=== PATIENT | male | born 1950 | race Caucasian/White ===

== ENCOUNTER 2020-02-29 16:17 | Emergency (ER) | payer MEDICARE, OTHER ==
[~2020-02-29] VITALS: Ht 165.1 cm; Wt 66.5 kg
[~2020-02-29 16:17] MED LIST: AMLO10TA8 PO
[2020-02-29 16:44] VITALS: BP 136/81
--- NOTE | 2020-02-29 17:19 | NUR ---
SPORTS INFORMATION DIRECTOR: PT TO ROOM FROM [facility]
--- NOTE | 2020-02-29 17:28 | NUR ---
HEATHER RN: PT REPORTS HIS HIS DOG RAN INTO HIS RIGHT KNEE YESTERDAY AND HE IS NOT ABLE TO BEAR WEIGHT ON IT. VS STABLE. CALL LIGHT IN PLACE. REPORT GIVEN TO ALYSE APONTE
--- NOTE | 2020-02-29 17:29 | NUR ---
PT TO ROOM BY WHEELCHAIR WITH ALYSE WALTERS. NAD NOTED. PT RESTING CALMLY IN RWELLS, CALL LIGHT WITHIN REACH. ASSUMING CARE OF PT
--- NOTE | 2020-02-29 17:52 | NUR ---
ERP AT BEDSIDE FOR INITIAL ASSESSMENT
--- NOTE | 2020-02-29 18:27 | NUR ---
DC EDUCATION PROVIDED, PT DEMONSTRATES UNDERSTANDING. JUAN WRAP APPLIED WITH GOOD DISTAL CAP REFILL. PT TRANSFERRED SELF TO WHEELCHAIR, WHEELED TO DC WITH RN. SON TO TRANSPORT PT HOME.
== END 2020-02-29 18:30 | disposition home or self-care (01) ==
LOC: ED 17:36
DX: S80.02XA Contusion of left knee, initial encounter (principal); F17.200 Nicotine dependence, unspecified, uncomplicated; X58.XXXA Exposure to other specified factors, initial encounter; Y93.89 Activity, other specified; Y92.830 Public park as the place of occurrence of the external cause; Y99.8 Other external cause status
CPT/HCPCS: 99283

== ENCOUNTER → 2020-10-18 | Outpatient (CLI) | payer MEDICARE ==
[~2020-10-18] MED LIST changes: +AMLO-211 PO; -AMLO10TA8 PO
[2020-10-18 15:32] LABS: MEAN CORPUSCULAR HEMOGLOBIN 37.6 pg (27.5-34.5); MEAN CORPUSCULAR HGB CONC 33.8 g/dL (33.2-36.2); MEAN PLATELET VOLUME 7.8 fL (7.4-10.4); PLATELET COUNT 99 x10^3/uL (130-400); RED BLOOD COUNT 3.86 x10^6/uL (4.38-5.82); RED CELL DISTRIBUTION WIDTH 13.1 % (9.4-14.8)
[2020-10-18 15:42] LABS: ALANINE AMINOTRANSFERASE 20 U/L (12-78); ALBUMIN 4.3 g/dL (3.4-5.0); ANION GAP 5 mmol/L (5-15); CALCIUM 9.4 mg/dL (8.5-10.1); CHLORIDE 105 mmol/L (98-107); CREATININE 0.85 mg/dL (0.7-1.3)
[2020-10-18 15:45] LABS: ALKALINE PHOSPHATASE 64 U/L (45-117); BILIRUBIN,TOTAL 0.7 mg/dL (0.2-1.0); TOTAL PROTEIN 6.9 g/dL (6.4-8.2)
[2020-10-18 16:20] LABS: MD YES
[2020-10-18 16:21] LABS: HEMOGRAM NOTE RECHECKED
[2020-10-18 16:25] LABS: LYMPH#(MANUAL) 23.24 x10^3/uL (1-3.4); LYMPHS% (MANUAL) 83 % (22-44); MONOS#(MANUAL) 0.28 x10^3/uL (0.3-2.7); MONOS% (MANUAL) 1 % (2-9); REACTIVE LYMPHS # (MANUAL) 0.28 x10^3/uL (0-0); REACTIVE LYMPHS % (MANUAL) 1 % (0-0); SEGS% (MANUAL) 15 % (42-75)
[2020-10-18 16:34] LABS: ANISOCYTOSIS 1+
[2020-10-18 16:35] LABS: <PLATELET ESTIMATE> DECREASED; <PLT MORPHOLOGY> NORMAL PLT MORPH; OVALOCYTES 1+
== END | disposition home or self-care (01) ==
LOC: STAR 14:11
PROVIDERS: ATTEND Surgery
DX: Z01.818 Encounter for other preprocedural examination (principal); M48.54XA Collapsed vertebra, not elsewhere classified, thoracic region, initial encounter for fracture; J43.9 Emphysema, unspecified; Z20.822 Contact with and (suspected) exposure to COVID-19
CPT/HCPCS: 36415; 71046; 80053; 83690; 85025; 85730; 93005; U0003

== ENCOUNTER 2020-10-24 10:08 | Day surgery (SDC) | payer MEDICARE ==
[~2020-10-24] VITALS: Ht 166.4 cm; Wt 63.8 kg
[2020-10-24 10:44] VITALS: BP 136/84
[2020-10-24] MEDS ORDERED: INDOCYANINE GREEN 25 MG VIAL ONE (10:52)
[2020-10-24] MEDS ORDERED: LACTATED RINGERS 1,000 ML IV SCH (11:00)
[2020-10-24] MEDS ORDERED: INDOCYANINE GREEN 25 MG VIAL IVPush ONE (11:00)
[2020-10-24] MEDS ORDERED: CHLORHEXIDINE 15 ML UDC PO ONE (11:00)
[2020-10-24] MEDS ORDERED: BUPIVACAINE/PF 0.5% ONE (12:41)
[2020-10-24] MEDS ORDERED: FENTANYL PF 250 MCG/5ML ONE (14:10)
[2020-10-24] MEDS ORDERED: ROCURONIUM 10MG/ML,5ML ONE (14:55)
[2020-10-24] MEDS ORDERED: GLYCOPYRROLATE 0.2MG/1ML, 5ML ONE (14:55)
[2020-10-24] MEDS ORDERED: DEXAMETHASONE 4 MG/ML, 1ML ONE (14:55)
[2020-10-24] MEDS ORDERED: ONDANSETRON 2MG/ML, 2ML ONE ×2 (14:55→15:33)
[2020-10-24] MEDS ORDERED: PROPOFOL 10 MG/ML, 20ML ONE (14:55)
[2020-10-24] MEDS ORDERED: NEOSTIGMINE 1 MG/ML, 10ML ONE (14:55)
[2020-10-24] MEDS ORDERED: CEFAZOLIN 1,000 MG ONE (14:55)
[2020-10-24] MEDS ORDERED: SUCCINYLCHOLINE 20 MG/ML, 10ML ONE (14:55)
[2020-10-24] MEDS ORDERED: OXYcodone 5 MG/5 ML ORAL.SOL UDC PO PRN (15:00)
[2020-10-24] MEDS ORDERED: HYDROmorphone 1 MG/ML, 1ML INJ IVPush PRN (15:00)
[2020-10-24] MEDS ORDERED: PROMETHAZINE 25 MG SUPP PR PRN (15:00)
[2020-10-24] MEDS ORDERED: MEPERIDINE/PF 25MG/0.5ML IVPush PRN (15:00)
[2020-10-24] MEDS ORDERED: ONDANSETRON 2MG/ML, 2ML IVPush PRN (15:00)
[2020-10-24] MEDS ORDERED: PROMETHAZINE 25 MG/ML, 1ML IVPush PRN (15:00)
[2020-10-24] MEDS ORDERED: hydrALAzine 20 MG/ML, 1ML IV PRN (15:00)
[2020-10-24] MEDS ORDERED: LORazepam 2 MG/ML, 1ML IVPush PRN (15:00)
[2020-10-24] MEDS ORDERED: LABETALOL 5MG/ML, 20ML IV PRN (15:00)
[2020-10-24] MEDS ORDERED: METHOCARBAMOL 1,000 MG in DEXTROSE 5% 100 ML IV PRN ×2 (15:00→16:30)
[2020-10-24] MEDS ORDERED: FENTANYL PF 100 MCG/2ML IV PRN (15:00)
[2020-10-24] MEDS ORDERED: ACETAMINOPHEN 325 MG TABLET PO PRN (15:00)
[2020-10-24] MEDS ORDERED: OXYC1TAB14 PO (15:09)
[2020-10-24] MEDS ORDERED: PROMETHAZINE 25 MG/ML, 1ML ONE (15:46)
[2020-10-24] MEDS ORDERED: LORazepam 2 MG/ML, 1ML ONE (16:12)
== END 2020-10-24 19:20 | disposition home or self-care (01) ==
LOC: OUT 10:08
PROVIDERS: ATTEND Surgery
DX: K80.10 Calculus of gallbladder with chronic cholecystitis without obstruction (principal); F12.90 Cannabis use, unspecified, uncomplicated; F17.210 Nicotine dependence, cigarettes, uncomplicated; Z88.0 Allergy status to penicillin; Z86.19 Personal history of other infectious and parasitic diseases; Z79.899 Other long term (current) drug therapy; Z72.89 Other problems related to lifestyle; Z98.890 Other specified postprocedural states
CPT/HCPCS: 47001; 47562; 88304; 88307; 88313; J0330; J0690; J1100; J2060; J2405; J2550; J2704; J2710; J2800; J3010; J7120